=== PATIENT | male | born 1935 | race Caucasian/White ===

== ENCOUNTER → 2016-10-27 | Outpatient (CLI) | payer BC ==
[~2016-10-27] MED LIST: ACET-1311 PO; ALLO300T2 PO; BACI500O11 TOP; BISACODYL SUPP INH; DILT-115 PO; FRS/40 PO; HYDR25SU6 RE; IMD/2 PO; ISOS60TA25 PO; MOML PO; MULT-506 PO; MULTTAB63 PO; OMEG10007 PO; POLY335019 PO; PRAV20TA PO; PRLSR20 PO; SENN1TAB77 PO; SENN8.6T15 PO; SODI1ENE4 RE; SPRIN/30 INH; SUCR1TAB29 PO; TAMS0.4C38 PO; TIOTCAP INH; TYL325X PO; WARF2TAB PO; WARF4TAB PO
[2016-10-27 13:14] LABS: INR 3.8 (0.9-1.1); PROTHROMBIN TIME (PATIENT) 43.1 SECONDS (9.0-12.0)
--- NOTE | 2016-11-06 08:47 | CODING QUERY NO DIAGNOSIS ---
Valid Physician Order Needed A valid physician order must be submitted in order to properly bill for the service(s) provided, including date of service(s), valid diagnosis, and physician signature. If these tests are done on a recurring basis the original physician order must be submitted in order to code and bill for the service(s) provided. Please fax us the original, signed physician order so that we may expedite billing to [phone] DOS 10/27/16 * PTINR Thank you! Lynn English Health Information Management
== END | disposition home or self-care (01) ==
LOC: C.LABWYN 10:25
PROVIDERS: ATTEND Internal Medicine Cardiovascular Disease
DX: Z51.81 Encounter for therapeutic drug level monitoring (principal); Z79.01 Long term (current) use of anticoagulants; I48.91 Unspecified atrial fibrillation

== ENCOUNTER 2016-11-03 22:46 | Emergency (ER) | payer BC ==
[~2016-11-03] VITALS: Ht 182.9 cm; Wt 100.0 kg
[~2016-11-03 22:46] MED LIST changes: -ACET-1311 PO; -IMD/2 PO; -MULTTAB63 PO; -SENN8.6T15 PO; -SPRIN/30 INH; -TAMS0.4C38 PO; -WARF4TAB PO
[2016-11-03 22:52] VITALS: TEMP 36.7; Ht 182.9 cm; Wt 100.0 kg
[2016-11-03] MEDS ORDERED: SPRIN/30 INH (23:50)
--- NOTE | 2016-11-03 23:50 | EMERGENCY ROOM VISIT NOTE ---
History Report prepared by Live: John Mac Under the Supervision of: Dr. Fletcher Sharp M.D. First contact with patient: 23:27 Chief Complaint: UNABLE TO VOID Stated Complaint: CAN NOT URINATE,CONSTIPATED History of Present Illness The patient is a 80 year old male who presents to the Emergency Room with complaints of constant inability to urinate beginning this morning. He was found to have 600 cc of urine in his bladder by bedside ultrasound. The patient states that he is also constipated. He states that he is only able to defecate small amounts at a time, and feels that he may be impacted. He has taken laxatives for his constipation, but this did not help. His caregiver notes that the patient is chronically on laxatives, and recently had his dosage reduced. Source of History: patient, caregiver Onset: This morning Symptom Intensity: 600 cc urine in bladder Quality: other (inability to urinate) Timing: constant Note: The patient complains of constipation. Review of Systems See HPI for pertinent positives & negatives. A total of 10 systems reviewed and were otherwise negative. Past Medical & Surgical Medical Problems: (1) Altered mental status (2) Ambulatory dysfunction (3) CAD (coronary artery disease) (4) CKD (chronic kidney disease) (5) COPD (chronic obstructive pulmonary disease) (6) HTN (hypertension) (7) Proctitis (8) Septic shock (9) Weakness generalized Family History FH: cancer FH: heart disease FH: hypertension Social History Smoking Status: Never Smoker Alcohol Use: none Drug Use: none Marital Status: Housing Status: lives alone Occupation Status: retired Current/Historical Medications Scheduled Allopurinol (Zyloprim), 300 MG PO QAM Diltiazem Hcl Ext Rel (Tiazac), 240 MG PO BID Furosemide (Lasix), 40 MG PO DAILY Isosorbide Mononitrate Ext Rel (Imdur Ext Rel), 60 MG PO QAM Multiple Vitamins W/ Minerals (Therems M), 1 TAB PO DAILY Omeprazole (Prilosec), 20 MG PO QAM Pravastatin (Pravachol ), 20 MG PO QPM Sucralfate (Carafate), 1 GM PO DAILY Tiotropium [place] (Spiriva Handihaler), 1 CAP INH DAILY Warfarin Sodium (Coumadin), 4 MG PO 4XWK Scheduled PRN Acetaminophen (Tylenol), 650 MG PO Q4 PRN for Pain or Fever Loperamide Hcl (Imodium), 2 MG PO UD PRN for Diarrhea Polyethylene Glycol 3350 (Miralax), 17 GM PO DAILY PRN for Constipation Sennosides-Docusate Sodium (Sennalax-S), 2 TABS PO DAILY PRN for Constipation Miscellaneous Medications Warfarin Sodium (Coumadin), 2 MG PO Allergies Coded Allergies: No Known Allergies (Verified , 11/03/16) Physical Exam Vital Signs Date Time Temp Pulse Resp B/P Pulse Ox O2 Delivery O2 Flow Rate FiO2 11/04/16 02:35 95 20 141/82 97 11/04/16 01:40 92 20 147/86 97 Room Air 11/03/16 22:52 36.7 73 18 138/66 93 Room Air Physical Exam GENERAL: Patient is in no acute distress. HEENT: No acute trauma, normocephalic atraumatic, mucous membranes moist, no nasal congestion, no scleral icterus. NECK: No stridor, no adenopathy, no meningismus, trachea is midline. LUNGS: Clear to auscultation bilaterally, no wheeze, no rhonchi, breath sounds equal. HEART: Irregular rhythm with a normal rate. No murmurs. ABDOMEN: Tenderness over the bladder, bowel sounds positive, no hernias, no peritonitis. EXTREMITIES: No cyanosis or edema, full range of motion of all the joints without pain or difficulty, no signs for acute trauma. NEUROLOGIC: Oriented x 3, no acute motor or sensory deficits, no focal weakness. SKIN: No rash, no jaundice, no diaphoresis. Medical Decision & Procedures ER Provider Diagnostic Interpretation: KUB interpreted by me: constipation noted. Laboratory Results Test 11/03/16 00:00 Urine Color DK YELLOW Urine Appearance CLEAR (CLEAR) Urine pH 5.5 (4.5-7.5) Urine Specific [place] 1.015 (1.000-1.030) Urine Protein NEG (NEG) Urine Glucose (UA) NEG (NEG) Urine Ketones NEG (NEG) Urine Occult Blood NEG (NEG) Urine Nitrite NEG (NEG) Urine Bilirubin NEG (NEG) Urine Urobilinogen NEG (NEG) Urine Leukocyte Esterase NEG (NEG) Laboratory results reviewed by me. Medications Administered Medications (Trade) Dose Ordered Sig/Kam[place] Route Start Time Stop Time Status Last Admin Dose Admin Senna/Docusate Sodium (Senokot S Tab) 2 tab NOW ONCE PO 11/04/16 01:15 11/04/16 01:16 DC 11/04/16 01:41 2 TAB ED Course 2328: The patient was evaluated in room C11B. A complete history and physical exam was performed. 0019: I checked in on the patient. He is feeling more comfortable after he has bladder was emptied. 1000 cc of urine was drained. I discussed the prospect of getting an enema to help with his constipation, and he verbalized agreement. 0115: Ordered Senokot S Tab 2 tab PO. 0225: Reevaluated the patient. Discussed results and discharge instructions: he verbalized understanding and agreement. The patient is ready for discharge. Medical Decision The patient is a 80 year old male who presents to the ED with complaints of the inability to urinate. Differential diagnoses considered include UTI, urinary retention, constipation, ureteral stricture, hernia, The patient presents with the inability to urinate as well as constipation. He has had the same issue about a year ago. He was adamant that he would not leave here with a Martins catheter in place. A Martins catheter was inserted and about 1000 mL of urine drained. Urinalysis does not show infection or hematuria. KUB demonstrates constipation. The patient was given 2 oral Senokot, he received soapsuds enemas with minimal results. On my rectal exam, soft stool was found in the rectal vault. The patient does not want to stay here any longer. He would like to go home to see if he can move his bowels with some more time. He states that he will return if he cannot urinate and will return if he has no success with bowel movements. He is being discharged on Senokot and Miralax. Impression Primary Impression: Urinary retention Additional Impression: Constipation Scribe Attestation The scribe's documentation has been prepared under my direction and personally reviewed by me in its entirety. I confirm that the note above accurately reflects all work, treatment, procedures, and medical decision making performed by me. Departure Information Dispostion Home / Self-Care Referrals [facility] (PCP) Forms HOME CARE DOCUMENTATION FORM, IMPORTANT VISIT INFORMATION, WORK / SCHOOL INSTRUCTIONS Patient Instructions My [facility] Additional Instructions senokot 2 tab 2x per day for now---if stool becomes too loose decrease to 2 tab 1x per day for now use miralax 1 heaping capfull in 8 oz of liquid 2x per day--if stool becomes too loose decrease to 1x per day return for worsening symptoms or if you cannont urinate Problem Qualifiers
[2016-11-03] MEDS ORDERED: MULTTAB63 PO (23:51)
[2016-11-03] MEDS ORDERED: WARF2TAB PO (23:53)
[2016-11-03] MEDS ORDERED: WARF4TAB PO (23:53)
[2016-11-03] MEDS ORDERED: SENN8.6T15 PO (23:55)
[2016-11-03] MEDS ORDERED: ACET-1311 PO (23:56)
[2016-11-03] MEDS ORDERED: IMD/2 PO (23:56)
[2016-11-04 00:14] LABS: URINE APPEARANCE CLEAR (CLEAR); URINE BILIRUBIN NEG (NEG); URINE COLOR DK YELLOW; URINE NITRITE NEG (NEG); URINE PH 5.5 (4.5-7.5); URINE SPECIFIC GRAVITY 1.015 (1.000-1.030); UROBILINOGEN NEG (NEG)
[2016-11-04 00:38] LABS: MANUAL MICROSCOPIC REQUIRED? NO; REVIEW REQ? NO
[2016-11-04] MEDS ORDERED: DOCUSATE SODIUM/SENNA 50/8.6MG TAB PO ONE (01:15)
[2016-11-04 02:35] VITALS: BP 141/82; PULSE 95; O2SAT 97
--- NOTE | 2016-11-04 06:54 | DIAGNOSTIC IMAGING REPORT ---
VALERIE CLINICAL HISTORY: Possible constipation. COMPARISON STUDY: KUB January 02, 2016. FINDINGS: A pacer lead is partially imaged. There are calcified granulomas within the spleen. The bowel gas pattern is within normal limits. There is a moderate amount of stool within the colon and rectum. IMPRESSION: 1. No evidence of a bowel obstruction. 2. Moderate amount of stool within the colon and rectum. Electronically signed by: Federico Denis M.D. 11/04/2016 6:51 AM Dictated Date/Time: 11/04/2016 6:50 AM
== END 2016-11-04 02:47 | disposition home or self-care (01) ==
LOC: C.EDB 22:48 → C.EDC 11-04 02:47
DX: R33.9 Retention of urine, unspecified (principal); K59.00 Constipation, unspecified; J44.9 Chronic obstructive pulmonary disease, unspecified; N18.9 Chronic kidney disease, unspecified; I12.9 Hypertensive chronic kidney disease with stage 1 through stage 4 chronic kidney disease, or unspecified chronic kidney disease; I25.10 Atherosclerotic heart disease of native coronary artery without angina pectoris

== ENCOUNTER → 2016-11-05 | Outpatient (CLI) | payer BC ==
[~2016-11-05] MED LIST changes: +ACET-1311 PO; -BACI500O11 TOP; -BISACODYL SUPP INH; -HYDR25SU6 RE; +IMD/2 PO; -MOML PO; -MULT-506 PO; +MULTTAB63 PO; -OMEG10007 PO; -SENN1TAB77 PO; +SENN8.6T15 PO; -SODI1ENE4 RE; +SPRIN/30 INH; +TAMS0.4C38 PO; -TIOTCAP INH; -TYL325X PO; +WARF4TAB PO
[2016-11-05 12:39] LABS: INR 2.6 (0.9-1.1); PROTHROMBIN TIME (PATIENT) 28.6 SECONDS (9.0-12.0)
== END | disposition home or self-care (01) ==
LOC: C.LABWYN 12:37
PROVIDERS: ATTEND Internal Medicine Cardiovascular Disease
DX: Z51.81 Encounter for therapeutic drug level monitoring (principal); Z79.01 Long term (current) use of anticoagulants

== ENCOUNTER 2016-11-12 11:55 | Emergency (ER) | payer BC ==
[~2016-11-12] VITALS: Ht 182.9 cm; Wt 103.0 kg
[~2016-11-12 11:55] MED LIST changes: -TAMS0.4C38 PO
[2016-11-12 11:58] VITALS: TEMP 36.6; Ht 182.9 cm; Wt 103.0 kg
[2016-11-12] MEDS ORDERED: SODIUM CHLORIDE 0.9% 500ML 500 ML IV STA (12:12)
[2016-11-12] MEDS ORDERED: METOCLOPRAMIDE HCL INJ 5 MG/ML 2 ML VIAL IV STA (12:12)
--- NOTE | 2016-11-12 12:25 | EMERGENCY ROOM VISIT NOTE ---
History Report prepared by Live: Sandy Castillo Under the Supervision of: Dr. Fausto Ramirez M.D. First contact with patient: 12:04 Chief Complaint: CONSTIPATION Stated Complaint: CONSTIPATION History of Present Illness The patient is an 80 year old male who presents to the Emergency Room via ALS from [facility] with complaints of persistent constipation that began prior to arrival. He currently rates his discomfort as a 2/10 in severity. The patient states that he was evaluated in the hospital last week for urinary retention and constipation. He states that he was "cleaned out" at that time, but states that he has not had a bowel movement since then. The patient additionally notes that he has not been urinating and states that he is in urinary retention. He denies taking any narcotic medications regularly. The patient notes abdominal pain today, but denies any hematochezia. He states that his constipations problems have been ongoing intermittently for the past year. Source of History: patient Onset: prior to arrival Position: other (global) Symptom Intensity: 2/10 Quality: other (constipation) Timing: other (persistent) Associated Symptoms: + abdominal pain, No hematochezia Note: Associated Symptoms: urinary retention. Review of Systems See HPI for pertinent positives & negatives. A total of 10 systems reviewed and were otherwise negative. Past Medical & Surgical Medical Problems: (1) Altered mental status (2) Ambulatory dysfunction (3) CAD (coronary artery disease) (4) CKD (chronic kidney disease) (5) COPD (chronic obstructive pulmonary disease) (6) HTN (hypertension) (7) Proctitis (8) Septic shock (9) Weakness generalized Family History FH: cancer FH: heart disease FH: hypertension Social History Smoking Status: Former Smoker Alcohol Use: none Drug Use: none Marital Status: Housing Status: lives alone Occupation Status: retired Current/Historical Medications Scheduled Allopurinol (Zyloprim), 300 MG PO QAM Diltiazem Hcl Ext Rel (Tiazac), 240 MG PO BID Furosemide (Lasix), 40 MG PO DAILY Isosorbide Mononitrate Ext Rel (Imdur Ext Rel), 60 MG PO QAM Multiple Vitamins W/ Minerals (Therems M), 1 TAB PO DAILY Omeprazole (Prilosec), 20 MG PO QAM Pravastatin (Pravachol ), 20 MG PO QPM Sucralfate (Carafate), 1 GM PO DAILY Tamsulosin Hcl (Flomax), 0.4 MG PO HS Tiotropium [place] (Spiriva Handihaler), 1 CAP INH DAILY Warfarin Sodium (Coumadin), 4 MG PO 4XWK Scheduled PRN Acetaminophen (Tylenol), 650 MG PO Q4 PRN for Pain or Fever Loperamide Hcl (Imodium), 2 MG PO UD PRN for Diarrhea Polyethylene Glycol 3350 (Miralax), 17 GM PO DAILY PRN for Constipation Sennosides-Docusate Sodium (Sennalax-S), 2 TABS PO DAILY PRN for Constipation Miscellaneous Medications Warfarin Sodium (Coumadin), 2 MG PO Allergies Coded Allergies: No Known Allergies (Verified , 11/12/16) Physical Exam Vital Signs Date Time Temp Pulse Resp B/P Pulse Ox O2 Delivery O2 Flow Rate FiO2 11/12/16 16:12 105 16 146/86 97 Room Air 11/12/16 15:16 101 18 146/86 96 Room Air 11/12/16 13:24 85 14 140/93 95 Room Air 11/12/16 12:46 114 11/12/16 11:58 36.6 112 17 115/55 96 Room Air Physical Exam GENERAL: Patient is a healthy-appearing well-nourished HEAD: Normocephalic atraumatic EYES: Ocular movements intact pupils equal and react to light OROPHARYNX mucous membranes are moist no exudates present no erythema or edema present NECK: Supple no nuchal rigidity CHEST: Good equal expansion LUNGS: Clear and equal to auscultation CARDIAC: Normal S1 and S2 ABDOMEN: Soft nontender no guarding BACK: No CVA tenderness EXTREMITIES: No pain upon palpation normal muscle strength in all groups no clubbing cyanosis or edema NEURO: Patient is following commands is answering questions appropriately. Alert and oriented x3 Cranial Nerves 2-12 grossly intact Medical Decision & Procedures ER Provider Diagnostic Interpretation: CT results as stated below per my review and radiologist interpretation: CT OF THE ABDOMEN AND PELVIS WITHOUT CONTRAST CLINICAL HISTORY: Diffuse abdominal pain. Constipation. COMPARISON STUDY: CT of the abdomen and pelvis December 26, 2015 and KUB November 04, 2016. TECHNIQUE: Axial images of the abdomen and pelvis were obtained without IV contrast. Oral contrast was administered. Images were reviewed in the axial, sagittal, and coronal planes. FINDINGS: The heart is moderately enlarged. Pacer lead is noted. There are calcified granulomas within the spleen. A lobular density along the right hepatic lobe is unchanged since earlier exams. This is benign given stability. Unenhanced images of the adrenal glands and pancreas are normal. Note is made of a 1.5 cm water attenuation lesion projecting off the upper pole of the left kidney. This likely reflects a cyst although is suboptimally assessed on this unenhanced exam. A 1.2 cm hypodense lesion arising from the lower pole the left kidney was shown to likely reflect a system renal ultrasound of December 29, 2015. There is a nonobstructing 3 mm distal right ureteral calculus shown on axial image 371 of 466. There is no evidence for a bowel obstruction. There is a moderate amount of stool within the colon and rectum. Metallic densities within the rectum likely reflect endoscopic clips. There is minimal perirectal infiltration. This is diminished since prior exam. The appendix is normal. No pneumatosis, free air or portal venous gas is present. IMPRESSION: 1. 3 mm nonobstructing distal right ureteral calculus. No hydronephrosis. 2. Moderate amount of stool within the colon and rectum. No bowel obstruction. Electronically signed by: Federico Denis M.D. 11/12/2016 3:08 PM Dictated Date/Time: 11/12/2016 2:59 PM Laboratory Results 11/12/16 12:15 Red Blood Count 3.24, Mean Corpuscular Volume 96.9, Mean Corpuscular Hemoglobin 31.5, Mean Corpuscular Hemoglobin Concent 32.5, Mean Platelet Volume 9.8, Neutrophils (%) (Auto) 72.0, Lymphocytes (%) (Auto) 17.1, Monocytes (%) (Auto) 6.6, Eosinophils (%) (Auto) 3.6, Basophils (%) (Auto) 0.2, Neutrophils # (Auto) 6.18, Lymphocytes # (Auto) 1.47, Monocytes # (Auto) 0.57, Eosinophils # (Auto) 0.31, Basophils # (Auto) 0.02 11/12/16 12:15 Test 11/12/16 12:15 11/12/16 12:30 White Blood Count 8.59 K/uL (4.8-10.8) Red Blood Count 3.24 M/uL (4.7-6.1) Hemoglobin 10.2 g/dL (14.0-18.0) Hematocrit 31.4 % (42-52) Mean Corpuscular Volume 96.9 fL (80-100) Mean Corpuscular Hemoglobin 31.5 pg (25-34) Mean Corpuscular Hemoglobin Concent 32.5 g/dl (32-36) Platelet Count 223 K/uL (130-400) Mean Platelet Volume 9.8 fL (7.4-10.4) Neutrophils (%) (Auto) 72.0 % Lymphocytes (%) (Auto) 17.1 % Monocytes (%) (Auto) 6.6 % Eosinophils (%) (Auto) 3.6 % Basophils (%) (Auto) 0.2 % Neutrophils # (Auto) 6.18 K/uL (1.4-6.5) Lymphocytes # (Auto) 1.47 K/uL (1.2-3.4) Monocytes # (Auto) 0.57 K/uL (0.11-0.59) Eosinophils # (Auto) 0.31 K/uL (0-0.5) Basophils # (Auto) 0.02 K/uL (0-0.2) RDW Standard Deviation 55.8 fL (36.4-46.3) RDW Coefficient of Variation 15.7 % (11.5-14.5) Immature Granulocyte % (Auto) 0.5 % Immature Granulocyte # (Auto) 0.04 K/uL (0.00-0.02) Anion Gap 8.0 mmol/L (3-11) Est Creatinine Clear Calc Drug Dose 26.6 ml/min Estimated GFR () 24.5 Estimated GFR (Non- 21.1 BUN/Creatinine Ratio 13.1 (10-20) Calcium Level 8.6 mg/dl (8.5-10.1) Total Bilirubin 0.2 mg/dl (0.2-1) Direct Bilirubin < 0.1 mg/dl (0-0.2) Aspartate Amino Transf (AST/SGOT) 6 U/L (15-37) Alanine Aminotransferase (ALT/SGPT) 15 U/L (12-78) Alkaline Phosphatase 94 U/L (45-117) Total Protein 6.0 gm/dl (6.4-8.2) Albumin 2.8 gm/dl (3.4-5.0) Lipase 107 U/L (73-393) Urine Color YELLOW Urine Appearance CLEAR (CLEAR) Urine pH 6.5 (4.5-7.5) Urine Specific [place] 1.018 (1.000-1.030) Urine Protein NEG (NEG) Urine Glucose (UA) NEG (NEG) Urine Ketones NEG (NEG) Urine Occult Blood NEG (NEG) Urine Nitrite NEG (NEG) Urine Bilirubin NEG (NEG) Urine Urobilinogen NEG (NEG) Urine Leukocyte Esterase SMALL (NEG) Urine WBC (Auto) 5-10 /hpf (0-5) Urine RBC (Auto) 0-4 /hpf (0-4) Urine Hyaline Casts (Auto) 1-5 /lpf (0-5) Urine Epithelial Cells (Auto) 10-20 /lpf (0-5) Urine Bacteria (Auto) 1+ (NEG) Labs reviewed by ED physician. Medications Administered Medications (Trade) Dose Ordered Sig/Kamron Route Start Time Stop Time Status Last Admin Dose Admin Sodium Chloride (Nss 500ml) 500 ml @ 999 mls/hr Q31M STAT IV 11/12/16 12:12 11/12/16 12:42 DC 11/12/16 12:15 999 MLS/HR Metoclopramide HCl (Reglan Inj) 10 mg NOW STAT IV 11/12/16 12:12 11/12/16 12:14 DC 11/12/16 13:20 10 MG Magnesium Citrate (Citrate Of Magnesia Soln) 296 ml NOW STAT PO 11/12/16 15:47 11/12/16 15:48 DC 11/12/16 16:12 296 ML ED Course 1207: Past medical records reviewed. The patient was evaluated in room C7. A complete history and physical examination was performed by the Nurse Practitioner student. 1212: Ordered Reglan Inj 10 mg IV, Sodium Chloride 500 ml @ 999 mls/hr IV. 1216: Past medical records reviewed. The patient was evaluated in room C7. A complete history and physical examination was performed. 1527: I reevaluated the patient and he is resting comfortably. I discussed the exam findings with him and I discussed the treatment plan. He verbalized complete understanding and agreement. He is ready to go home. 1547: Ordered Magnesium Citrate 296 ml PO. Medical Decision Differential diagnosis: Etiologies such as appendicitis, diverticulitis, PUD, biliary pathology, UTI, pancreatitis, obstruction, mesenteric ischemia, aortic pathology, infections, inflammatory bowel disease, renal colic, as well as others were entertained. This is an 80-year-old male who presents to the emergency department complaining of constipation as well as urinary retention. A Martins was placed in the emergency department. Because the patient has been here numerous times for his constipation a CAT scan of the abdomen pelvis performed which showed a moderate amount of stool throughout the colon. For this reason we will attempt to get the patient moving again with magnesium citrate. In addition the patient also has a kidney stone and I believe this may be what the patient is feeling when he states he is in urinary retention as well as the constipation. For this reason I strongly encouraged the patient follow-up with urology. I will place the patient on Flomax for the catheter. Impression Primary Impression: Kidney stone Additional Impression: Constipation Scribe Attestation The scribe's documentation has been prepared under my direction and personally reviewed by me in its entirety. I confirm that the note above accurately reflects all work, treatment, procedures, and medical decision making performed by me. Departure Information Dispostion Home / Self-Care Prescriptions Tamsulosin Hcl (FLOMAX) 0.4 Mg Cap 0.4 MG PO HS, #10 CAP Prov: Fausto Ramirez MD 11/12/16 Referrals [facility] (PCP) Forms HOME CARE DOCUMENTATION FORM, IMPORTANT VISIT INFORMATION, School Instructions, Work Instructions Patient Instructions Constipation, Kidney Stones Eval, My [facility] Additional Instructions Take 1/2 Bottle Mag Citrate Repeat second half in six hours Follow up with DR Leonard's officefor kidney stone Clear liquid diet next 48 hours You have been examined and treated today on an emergency basis only. This is not a substitute for, or an effort to provide, complete comprehensive medical care. It is impossible to recognize and treat all injuries or illnesses in a single emergency department visit. It is therefore important that you follow up closely with Dr Hope. Call as soon as possible for an appointment. Thank you for your time and consideration. I look forward to speaking with you again soon. Please don't hesitate to call us if you have any questions. Problem Qualifiers Additional Impression: Constipation Constipation type: unspecified constipation type Qualified Codes: K59.00 - Constipation, unspecified
[2016-11-12 12:38] LABS: BASO % 0.2 %; BASO ABS # 0.02 K/uL (0-0.2); COMPLETE YES; EOS % 3.6 %; HEMATOCRIT 31.4 % (42-52); IG% 0.5 %; LYMPH % 17.1 %; LYMPH ABS # 1.47 K/uL (1.2-3.4); MEAN CELL VOLUME 96.9 fL (80-100); MEAN CORPUSCULAR HEMOGLOBIN 31.5 pg (25-34); MEAN CORPUSCULAR HGB CONC 32.5 g/dl (32-36); MEAN PLATELET VOLUME 9.8 fL (7.4-10.4); MONO % 6.6 %; PLATELET COUNT 223 K/uL (130-400); RED BLOOD COUNT 3.24 M/uL (4.7-6.1); WHITE BLOOD COUNT 8.59 K/uL (4.8-10.8)
[2016-11-12 12:46] LABS: URINE APPEARANCE CLEAR (CLEAR); URINE BILIRUBIN NEG (NEG); URINE COLOR YELLOW; URINE NITRITE NEG (NEG); URINE PH 6.5 (4.5-7.5); URINE SPECIFIC GRAVITY 1.018 (1.000-1.030); UROBILINOGEN NEG (NEG); ZZURINE CULT IF INDIC CATH YES
[2016-11-12 12:54] LABS: MANUAL MICROSCOPIC REQUIRED? NO; REVIEW REQ? NO
[2016-11-12 12:58] LABS: ALT/SGPT 15 U/L (12-78); BLOOD UREA NITROGEN 35 mg/dl (7-18); BUN/CREATININE RATIO 13.1 (10-20); CALCIUM 8.6 mg/dl (8.5-10.1); CARBON DIOXIDE 28 mmol/L (21-32); CHLORIDE 104 mmol/L (98-107); GLUCOSE 136 mg/dl (70-99); POTASSIUM 4.7 mmol/L (3.5-5.1); SODIUM 140 mmol/L (136-145)
[2016-11-12 13:03] LABS: ALKALINE PHOSPHATASE 94 U/L (45-117); AST/SGOT 6 U/L (15-37)
--- NOTE | 2016-11-12 15:09 | DIAGNOSTIC IMAGING REPORT ---
CT OF THE ABDOMEN AND PELVIS WITHOUT CONTRAST CLINICAL HISTORY: Diffuse abdominal pain. Constipation. COMPARISON STUDY: CT of the abdomen and pelvis December 26, 2015 and KUB November 04, 2016. TECHNIQUE: Axial images of the abdomen and pelvis were obtained without IV contrast. Oral contrast was administered. Images were reviewed in the axial, sagittal, and coronal planes. FINDINGS: The heart is moderately enlarged. Pacer lead is noted. There are calcified granulomas within the spleen. A lobular density along the right hepatic lobe is unchanged since earlier exams. This is benign given stability. Unenhanced images of the adrenal glands and pancreas are normal. Note is made of a 1.5 cm water attenuation lesion projecting off the upper pole of the left kidney. This likely reflects a cyst although is suboptimally assessed on this unenhanced exam. A 1.2 cm hypodense lesion arising from the lower pole the left kidney was shown to likely reflect a system renal ultrasound of December 29, 2015. There is a nonobstructing 3 mm distal right ureteral calculus shown on axial image 371 of 466. There is no evidence for a bowel obstruction. There is a moderate amount of stool within the colon and rectum. Metallic densities within the rectum likely reflect endoscopic clips. There is minimal perirectal infiltration. This is diminished since prior exam. The appendix is normal. No pneumatosis, free air or portal venous gas is present. IMPRESSION: 1. 3 mm nonobstructing distal right ureteral calculus. No hydronephrosis. 2. Moderate amount of stool within the colon and rectum. No bowel obstruction. Electronically signed by: Federico Denis M.D. 11/12/2016 3:08 PM Dictated Date/Time: 11/12/2016 2:59 PM
[2016-11-12] MEDS ORDERED: TAMS0.4C38 PO (15:41)
[2016-11-12] MEDS ORDERED: MAGNESIUM CITRATE 296 ML/BTL PO STA (15:47)
[2016-11-12 16:12] VITALS: BP 146/86; PULSE 105; O2SAT 97
== END 2016-11-12 16:15 | disposition home or self-care (01) ==
LOC: EDBD 11:55 → C.EDC 11:57
DX: N20.0 Calculus of kidney (principal); K59.00 Constipation, unspecified; I25.10 Atherosclerotic heart disease of native coronary artery without angina pectoris; N18.9 Chronic kidney disease, unspecified; I10 Essential (primary) hypertension; Z87.891 Personal history of nicotine dependence; Z79.01 Long term (current) use of anticoagulants

== ENCOUNTER → 2016-11-17 | Outpatient (CLI) | payer BC ==
[~2016-11-17] MED LIST changes: +BACI500O11 TOP; +BISACODYL SUPP INH; +HYDR25SU6 RE; +MOML PO; +MULT-506 PO; +OMEG10007 PO; +SENN1TAB77 PO; +SODI1ENE4 RE; +TAMS0.4C38 PO; +TIOTCAP INH; +TYL325X PO
[2016-11-17 12:47] LABS: INR 3.5 (0.9-1.1); PROTHROMBIN TIME (PATIENT) 39.1 SECONDS (9.0-12.0)
== END | disposition home or self-care (01) ==
LOC: C.LABWYN 14:11
PROVIDERS: ATTEND Internal Medicine Cardiovascular Disease
DX: I48.91 Unspecified atrial fibrillation (principal)

== ENCOUNTER → 2016-11-18 | Outpatient (CLI) | payer BC ==
[~2016-11-18] MED LIST changes: -BACI500O11 TOP; -BISACODYL SUPP INH; -HYDR25SU6 RE; -MOML PO; -MULT-506 PO; -OMEG10007 PO; -SENN1TAB77 PO; -SODI1ENE4 RE; -TIOTCAP INH; -TYL325X PO
--- NOTE | 2016-11-25 06:19 | CODING QUERY NO DIAGNOSIS ---
Valid Physician Order Needed A valid physician order must be submitted in order to properly bill for the service(s) provided, including date of service(s), valid diagnosis, and physician signature. If these tests are done on a recurring basis the original physican order must be submitted in order to code and bill for the service(s) provided. Please fax us the original, signed physician order so that we may expedite billing to [phone] DOS 11/19/16 * URINE CULTURE ORDERED BY DR. PRADHAN Thank you Anahy [facility] Information Management
== END | disposition home or self-care (01) ==
LOC: C.LABWYN 09:56
PROVIDERS: ATTEND Urology
DX: N40.1 Benign prostatic hyperplasia with lower urinary tract symptoms (principal); N20.1 Calculus of ureter; R33.9 Retention of urine, unspecified

== ENCOUNTER → 2016-11-24 | Outpatient (CLI) | payer BC ==
[~2016-11-24] MED LIST changes: -TAMS0.4C38 PO
[2016-11-24 18:33] LABS: INFLUENZA A PCR Neg for Influ A (NEG); INFLUENZA B PCR Neg for Influ B (NEG)
== END | disposition home or self-care (01) ==
LOC: C.LABWYN 12:02
PROVIDERS: ATTEND Nurse Practitioner Adult Health
DX: R53.83 Other fatigue (principal)

== ENCOUNTER → 2016-11-26 | Outpatient (CLI) | payer BC ==
[2016-11-26 12:59] LABS: HEMATOCRIT 32.4 % (42-52); MEAN CELL VOLUME 96.4 fL (80-100); MEAN CORPUSCULAR HEMOGLOBIN 30.7 pg (25-34); MEAN CORPUSCULAR HGB CONC 31.8 g/dl (32-36); MEAN PLATELET VOLUME 10.7 fL (7.4-10.4); PLATELET COUNT 241 K/uL (130-400); RED BLOOD COUNT 3.36 M/uL (4.7-6.1); WHITE BLOOD COUNT 9.31 K/uL (4.8-10.8)
[2016-11-26 13:10] LABS: BLOOD UREA NITROGEN 24 mg/dl (7-18); BUN/CREATININE RATIO 11.8 (10-20); CALCIUM 8.5 mg/dl (8.5-10.1); CARBON DIOXIDE 26 mmol/L (21-32); CHLORIDE 107 mmol/L (98-107); GLUCOSE 102 mg/dl (70-99); POTASSIUM 4.3 mmol/L (3.5-5.1); SODIUM 143 mmol/L (136-145)
[2016-11-26 13:20] LABS: ESTIMATED AVERAGE GLUCOSE 131 mg/dl; HA1C FLAG Normal (Normal)
--- NOTE | 2016-11-27 15:31 | CODING QUERY NO DIAGNOSIS ---
TREATMENT RENDERED WITHOUT A DIAGNOSIS 34 To promote full compliance with coding requirements relating to patient care, physician participation is requested in all cases of sharepoint manager uncertainty. Please assist us with providing a diagnosis/symptom for the test(s) below: A diagnosis/symptom was not documented on your Order. A valid diagnosis/symptom is required to bill all insurances. Please remember that we are unable to code a diagnosis of rule out, probable, possible, questionable, or suspected. DOS 11/26/16 Tests that require a diagnosis: * HEMOGLOBIN A1C DIAGNOSIS: * PARTIAL RENAL PROFILE DIAGNOSIS: * TSH DIAGNOSIS: * CBC w/o DIFF DIAGNOSIS: Provider Signature: Date: Thank you Cassidy Kelly Health Information Management Once completed, please kindly fax back to [phone] For questions please call [phone]
--- NOTE | 2016-12-22 12:44 | CODING QUERY MEDICAL NECESSITY ---
SUPPORTING DIAGNOSIS NEEDED A supporting diagnosis is required for the test/procedure performed on this patient in order for us to be reimbursed by the patient's insurance. Please provide a supporting diagnosis for the following test/procedure listed below next to the test name along with your signature. *If there is no additional diagnosis for this patient that would support the following test/procedure please document that below next to the test/procedure. Test(s)/Procedure(s) that require a supporting diagnosis: * GLYCATED HEMOGLOBIN DIAGNOSIS: * DOS: 11/26/16 Provider Signature: Date: Thank you Genie [facility] Information Management Once completed, please kindly fax back to [phone] For questions please call [phone]
== END | disposition home or self-care (01) ==
LOC: C.LABWYN 08:01
PROVIDERS: ATTEND Nurse Practitioner Adult Health
DX: R53.83 Other fatigue (principal); I48.91 Unspecified atrial fibrillation; Z79.01 Long term (current) use of anticoagulants; E11.9 Type 2 diabetes mellitus without complications

== ENCOUNTER → 2016-11-26 | Outpatient (CLI) | payer BC ==
[2016-11-26 13:08] LABS: INR 2.2 (0.9-1.1); PROTHROMBIN TIME (PATIENT) 24.8 SECONDS (9.0-12.0)
--- NOTE | 2016-11-27 15:25 | CODING QUERY NO DIAGNOSIS ---
TREATMENT RENDERED WITHOUT A DIAGNOSIS 34 To promote full compliance with coding requirements relating to patient care, physician participation is requested in all cases of dental appliance repairer uncertainty. Please assist us with providing a diagnosis/symptom for the test(s) below: A diagnosis/symptom was not documented on your Order. A valid diagnosis/symptom is required to bill all insurances. Please remember that we are unable to code a diagnosis of rule out, probable, possible, questionable, or suspected. DOS 11/26/16 Tests that require a diagnosis: * PROTHROMBIN TIME DIAGNOSIS: Provider Signature: Date: Thank you Cassidy Kelly [employer] Information Management Once completed, please kindly fax back to [phone] For questions please call [phone]
== END | disposition home or self-care (01) ==
LOC: C.LABWYN 08:01
PROVIDERS: ATTEND Internal Medicine
DX: I48.91 Unspecified atrial fibrillation (principal); Z79.01 Long term (current) use of anticoagulants

== ENCOUNTER → 2016-12-08 | Outpatient (CLI) | payer BC ==
[~2016-12-08] MED LIST changes: +SENN1TAB86 PO; -SENN8.6T15 PO
[2016-12-08 13:36] LABS: BLOOD UREA NITROGEN 26 mg/dl (7-18); BUN/CREATININE RATIO 14.3 (10-20); CALCIUM 8.6 mg/dl (8.5-10.1); CARBON DIOXIDE 29 mmol/L (21-32); CHLORIDE 107 mmol/L (98-107); GLUCOSE 115 mg/dl (70-99); POTASSIUM 4.7 mmol/L (3.5-5.1); SODIUM 143 mmol/L (136-145)
[2016-12-08 13:41] LABS: PROSTATE SPECIFIC ANTIGEN 0.804 ng/ml (0.000-4.000)
== END | disposition home or self-care (01) ==
LOC: C.LABWYN 08:41
PROVIDERS: ATTEND Urology
DX: N40.1 Benign prostatic hyperplasia with lower urinary tract symptoms (principal); R33.9 Retention of urine, unspecified; N20.1 Calculus of ureter

== ENCOUNTER → 2016-12-10 | Outpatient (CLI) | payer BC ==
[~2016-12-10] MED LIST changes: -SENN1TAB86 PO; +SENN8.6T15 PO
[2016-12-10 12:35] LABS: INR 1.6 (0.9-1.1); PROTHROMBIN TIME (PATIENT) 17.5 SECONDS (9.0-12.0)
== END | disposition home or self-care (01) ==
LOC: C.LABWYN 12:40
PROVIDERS: ATTEND Internal Medicine Cardiovascular Disease
DX: I48.91 Unspecified atrial fibrillation (principal)

== ENCOUNTER → 2016-12-11 | Outpatient (CLI) | payer BC ==
--- NOTE | 2016-12-11 09:47 | DIAGNOSTIC IMAGING REPORT ---
KUB HISTORY: N20.1 Ureteric [id number] COMPARISON: KUB 11/04/2016. Abdomen and pelvis CT 11/12/2016. FINDINGS: The bowel gas pattern is unremarkable. There are no dilated loops of small bowel to suggest an obstruction. The 3 mm distal right ureteral stone seen on the prior study is not clearly identified. Surgical clips at the rectum. Calcifications in the deep pelvis remain stable and likely represent phleboliths. No renal or ureteral calculi identified. No pneumoperitoneum or pneumatosis. IMPRESSION: No renal or ureteral stones identified. Electronically signed by: Phil Lynn M.D. 12/11/2016 9:45 AM Dictated Date/Time: 12/11/2016 9:43 AM
== END | disposition home or self-care (01) ==
LOC: C.LAB 08:42
PROVIDERS: ATTEND Urology
DX: N20.1 Calculus of ureter (principal)

== ENCOUNTER → 2016-12-17 | Outpatient (CLI) | payer BC ==
[2016-12-17 12:27] LABS: INR 1.7 (0.9-1.1); PROTHROMBIN TIME (PATIENT) 18.8 SECONDS (9.0-12.0)
== END | disposition home or self-care (01) ==
LOC: C.LABWYN 12:35
PROVIDERS: ATTEND Internal Medicine Cardiovascular Disease
DX: I48.91 Unspecified atrial fibrillation (principal)

== ENCOUNTER → 2016-12-24 | Outpatient (CLI) | payer BC ==
[2016-12-24 13:01] LABS: INR 2.2 (0.9-1.1); PROTHROMBIN TIME (PATIENT) 23.9 SECONDS (9.0-12.0)
== END | disposition home or self-care (01) ==
LOC: C.LABWYN 12:58
PROVIDERS: ATTEND Internal Medicine Cardiovascular Disease
DX: I48.91 Unspecified atrial fibrillation (principal)

== ENCOUNTER → 2016-12-31 | Outpatient (CLI) | payer BC ==
[~2016-12-31] MED LIST changes: +SENN1TAB86 PO; -SENN8.6T15 PO
[2016-12-31 13:52] LABS: BLOOD UREA NITROGEN 30 mg/dl (7-18); BUN/CREATININE RATIO 15.9 (10-20); CALCIUM 8.7 mg/dl (8.5-10.1); CARBON DIOXIDE 26 mmol/L (21-32); CHLORIDE 110 mmol/L (98-107); GLUCOSE 104 mg/dl (70-99); POTASSIUM 4.1 mmol/L (3.5-5.1); SODIUM 144 mmol/L (136-145)
== END | disposition home or self-care (01) ==
LOC: C.LABWYN 06:02
PROVIDERS: ATTEND Internal Medicine
DX: I48.91 Unspecified atrial fibrillation (principal); I10 Essential (primary) hypertension; E78.5 Hyperlipidemia, unspecified

== ENCOUNTER → 2017-01-14 | Outpatient (CLI) | payer BC ==
[~2017-01-14] MED LIST changes: -SENN1TAB86 PO; +SENN8.6T15 PO
[2017-01-14 12:10] LABS: INR 2.5 (0.9-1.1); PROTHROMBIN TIME (PATIENT) 28.3 SECONDS (9.0-12.0)
== END | disposition home or self-care (01) ==
LOC: C.LABWYN 13:40
PROVIDERS: ATTEND Internal Medicine Cardiovascular Disease
DX: I48.91 Unspecified atrial fibrillation (principal)

== ENCOUNTER → 2017-02-19 | Outpatient (CLI) | payer BC ==
[~2017-02-19] MED LIST changes: +SENN1TAB86 PO; -SENN8.6T15 PO
[2017-02-19 08:45] LABS: INR 1.9 (0.9-1.1); PROTHROMBIN TIME (PATIENT) 21.1 SECONDS (9.0-12.0)
== END | disposition home or self-care (01) ==
LOC: C.LABWYN 08:23
PROVIDERS: ATTEND Internal Medicine
DX: I51.81 Takotsubo syndrome (principal); Z79.01 Long term (current) use of anticoagulants; I48.91 Unspecified atrial fibrillation

== ENCOUNTER → 2017-02-25 | Outpatient (CLI) | payer BC ==
[2017-02-25 12:22] LABS: INR 2.3 (0.9-1.1); PROTHROMBIN TIME (PATIENT) 25.5 SECONDS (9.0-12.0)
== END | disposition home or self-care (01) ==
LOC: C.LABWYN 12:49
PROVIDERS: ATTEND Internal Medicine
DX: I48.91 Unspecified atrial fibrillation (principal)

== ENCOUNTER → 2017-03-04 | Outpatient (CLI) | payer BC ==
[~2017-03-04] MED LIST changes: -SENN1TAB86 PO; +SENN8.6T15 PO
[2017-03-04 12:50] LABS: INR 2.5 (0.9-1.1); PROTHROMBIN TIME (PATIENT) 28.3 SECONDS (9.0-12.0)
== END | disposition home or self-care (01) ==
LOC: C.LABWYN 06:15
PROVIDERS: ATTEND Internal Medicine Cardiovascular Disease
DX: I48.91 Unspecified atrial fibrillation (principal)

== ENCOUNTER → 2017-03-18 | Outpatient (CLI) | payer BC ==
[2017-03-18 12:39] LABS: PROTHROMBIN TIME (PATIENT) 60.4 SECONDS (9.0-12.0)
[2017-03-18 12:43] LABS: INR 5.3 (0.9-1.1)
== END | disposition home or self-care (01) ==
LOC: C.LABWYN 06:38
PROVIDERS: ATTEND Internal Medicine Cardiovascular Disease
DX: I48.91 Unspecified atrial fibrillation (principal)

== ENCOUNTER → 2017-03-30 | Outpatient (CLI) | payer BC ==
[~2017-03-30] MED LIST changes: +SENN1TAB86 PO; -SENN8.6T15 PO
[2017-03-30 12:47] LABS: PROTHROMBIN TIME (PATIENT) 44.9 SECONDS (9.0-12.0)
== END | disposition home or self-care (01) ==
LOC: C.LABWYN 12:51
PROVIDERS: ATTEND Internal Medicine Cardiovascular Disease
DX: I48.91 Unspecified atrial fibrillation (principal); Z79.01 Long term (current) use of anticoagulants

== ENCOUNTER → 2017-04-08 | Outpatient (CLI) | payer BC ==
[2017-04-08 12:52] LABS: INR 2.2 (0.9-1.1); PROTHROMBIN TIME (PATIENT) 23.9 SECONDS (9.0-12.0)
== END | disposition home or self-care (01) ==
LOC: C.LABWYN 14:46
PROVIDERS: ATTEND Internal Medicine Cardiovascular Disease
DX: Z51.81 Encounter for therapeutic drug level monitoring (principal); Z79.01 Long term (current) use of anticoagulants; I48.91 Unspecified atrial fibrillation

== ENCOUNTER → 2017-04-15 | Outpatient (CLI) | payer BC ==
[~2017-04-15] MED LIST changes: -SENN1TAB86 PO; +SENN8.6T15 PO
[2017-04-15 12:45] LABS: INR 2.1 (0.9-1.1); PROTHROMBIN TIME (PATIENT) 23.7 SECONDS (9.0-12.0)
== END | disposition home or self-care (01) ==
LOC: C.LABWYN 12:32
PROVIDERS: ATTEND Internal Medicine Cardiovascular Disease
DX: I48.91 Unspecified atrial fibrillation (principal); Z79.01 Long term (current) use of anticoagulants

== ENCOUNTER → 2017-04-29 | Outpatient (CLI) | payer BC ==
[2017-04-29 08:42] LABS: INR 1.7 (0.9-1.1); PROTHROMBIN TIME (PATIENT) 18.2 SECONDS (9.0-12.0)
== END | disposition home or self-care (01) ==
LOC: C.LABWYN 07:59
PROVIDERS: ATTEND Internal Medicine Cardiovascular Disease
DX: I48.91 Unspecified atrial fibrillation (principal)

== ENCOUNTER → 2017-05-06 | Outpatient (CLI) | payer BC | END | disposition home or self-care (01) | LOC: C.LABWYN 12:57 | PROVIDERS: ATTEND Internal Medicine Cardiovascular Disease | DX: I48.91 Unspecified atrial fibrillation (principal) ==

== ENCOUNTER → 2017-05-13 | Outpatient (CLI) | payer BC ==
[2017-05-13 12:20] LABS: INR 2.3 (0.9-1.1); PROTHROMBIN TIME (PATIENT) 25.4 SECONDS (9.0-12.0)
== END | disposition home or self-care (01) ==
LOC: C.LABWYN 12:58
PROVIDERS: ATTEND Internal Medicine Cardiovascular Disease
DX: I48.91 Unspecified atrial fibrillation (principal)

== ENCOUNTER → 2017-06-10 | Outpatient (CLI) | payer BC ==
[2017-06-10 12:52] LABS: MEAN CELL VOLUME 87.4 fL (80-100); MEAN CORPUSCULAR HEMOGLOBIN 27.2 pg (25-34); MEAN CORPUSCULAR HGB CONC 31.1 g/dl (32-36); MEAN PLATELET VOLUME 10.3 fL (7.4-10.4); PLATELET COUNT 266 K/uL (130-400); RED BLOOD COUNT 4.12 M/uL (4.7-6.1); WHITE BLOOD COUNT 11.12 K/uL (4.8-10.8)
[2017-06-10 12:54] LABS: INR 1.4 (0.9-1.1); PROTHROMBIN TIME (PATIENT) 15.3 SECONDS (9.0-12.0)
[2017-06-10 12:56] LABS: BLOOD UREA NITROGEN 30 mg/dl (7-18); BUN/CREATININE RATIO 14.9 (10-20); CARBON DIOXIDE 24 mmol/L (21-32); CHLORIDE 108 mmol/L (98-107); GLUCOSE 93 mg/dl (70-99); POTASSIUM 4.8 mmol/L (3.5-5.1); SODIUM 139 mmol/L (136-145)
[2017-06-10 13:07] LABS: ESTIMATED AVERAGE GLUCOSE 126 mg/dl; HA1C FLAG Normal (Normal)
== END | disposition home or self-care (01) ==
LOC: C.LABWYN 09:58
PROVIDERS: ATTEND Internal Medicine
DX: E11.22 Type 2 diabetes mellitus with diabetic chronic kidney disease (principal); N18.9 Chronic kidney disease, unspecified; I12.9 Hypertensive chronic kidney disease with stage 1 through stage 4 chronic kidney disease, or unspecified chronic kidney disease; Z51.81 Encounter for therapeutic drug level monitoring; Z79.01 Long term (current) use of anticoagulants

== ENCOUNTER → 2017-06-17 | Outpatient (CLI) | payer BC ==
[2017-06-17 12:43] LABS: INR 1.4 (0.9-1.1); PROTHROMBIN TIME (PATIENT) 15.6 SECONDS (9.0-12.0)
== END | disposition home or self-care (01) ==
LOC: C.LABWYN 13:14
PROVIDERS: ATTEND Internal Medicine
DX: I48.91 Unspecified atrial fibrillation (principal)

== ENCOUNTER → 2017-06-24 | Outpatient (CLI) | payer BC ==
[2017-06-24 12:50] LABS: INR 2.2 (0.9-1.1); PROTHROMBIN TIME (PATIENT) 24.9 SECONDS (9.0-12.0)
== END | disposition home or self-care (01) ==
LOC: C.LABWYN 06:10
PROVIDERS: ATTEND Internal Medicine
DX: I48.91 Unspecified atrial fibrillation (principal)

== ENCOUNTER → 2017-07-01 | Outpatient (CLI) | payer BC ==
[2017-07-01 12:26] LABS: INR 2.3 (0.9-1.1); PROTHROMBIN TIME (PATIENT) 25.3 SECONDS (9.0-12.0)
== END | disposition home or self-care (01) ==
LOC: C.LABWYN 13:17
PROVIDERS: ATTEND Internal Medicine
DX: I48.91 Unspecified atrial fibrillation (principal); Z79.01 Long term (current) use of anticoagulants

== ENCOUNTER → 2017-07-29 | Outpatient (CLI) | payer BC ==
[2017-07-29 12:42] LABS: PROTHROMBIN TIME (PATIENT) 33.5 SECONDS (9.0-12.0)
== END | disposition home or self-care (01) ==
LOC: C.LABWYN 09:57
PROVIDERS: ATTEND Internal Medicine
DX: I48.91 Unspecified atrial fibrillation (principal)

== ENCOUNTER → 2017-08-26 | Outpatient (CLI) | payer BC ==
[~2017-08-26] MED LIST changes: +SENN1TAB86 PO; -SENN8.6T15 PO
[2017-08-26 12:49] LABS: INR 2.9 (0.9-1.1); PROTHROMBIN TIME (PATIENT) 32.5 SECONDS (9.0-12.0)
== END | disposition home or self-care (01) ==
LOC: C.LABWYN 13:14
PROVIDERS: ATTEND Internal Medicine
DX: I48.2 Chronic atrial fibrillation (principal)

== ENCOUNTER → 2017-09-23 | Outpatient (CLI) | payer BC ==
[2017-09-23 12:41] LABS: PROTHROMBIN TIME (PATIENT) 53.5 SECONDS (9.0-12.0)
[2017-09-23 12:54] LABS: INR 5.3 (0.9-1.1)
== END | disposition home or self-care (01) ==
LOC: C.LABWYN 10:13
PROVIDERS: ATTEND Internal Medicine Cardiovascular Disease
DX: I48.2 Chronic atrial fibrillation (principal)

== ENCOUNTER → 2017-10-03 | Outpatient (CLI) | payer BC ==
[2017-10-05 12:52] LABS: INR 2.2 (0.9-1.1)
[2017-10-05 13:09] LABS: BLOOD UREA NITROGEN 39 mg/dl (7-18); CALCIUM 8.8 mg/dl (8.5-10.1); CARBON DIOXIDE 25 mmol/L (21-32); CREATININE 1.92 mg/dl (0.60-1.40); GLUCOSE 86 mg/dl (70-99); POTASSIUM 4.8 mmol/L (3.5-5.1); SODIUM 139 mmol/L (136-145)
== END | disposition home or self-care (01) ==
LOC: C.LABWYN 14:57
PROVIDERS: ATTEND Internal Medicine Cardiovascular Disease
DX: Z01.89 Encounter for other specified special examinations (principal)

== ENCOUNTER → 2017-10-19 | Outpatient (CLI) | payer BC ==
[2017-10-19 15:06] LABS: INR 2.8 (0.9-1.1)
--- NOTE | 2017-10-20 13:46 | CODING QUERY NO DIAGNOSIS ---
TREATMENT RENDERED WITHOUT A DIAGNOSIS To promote full compliance with coding requirements relating to patient care, physician participation is requested in all cases of livestock nutrition territory manager uncertainty. Please assist us with providing a copy of the original physician order for the following services that were rendered on 10/19/17. PROTHROMBIN TIME PROFILE Please send a copy of the original physician order including a diagnosis and signature for the services rendered above so that we are able to bill the insurance for these services. [facility] you [facility] Information Management Once completed, please kindly fax back to [phone] For questions please call [phone]
== END | disposition home or self-care (01) ==
LOC: C.LABSPEC 14:30
PROVIDERS: ATTEND Internal Medicine Cardiovascular Disease
DX: I48.2 Chronic atrial fibrillation (principal)

== ENCOUNTER → 2017-11-23 | Outpatient (CLI) | payer BC ==
[2017-11-23 13:02] LABS: INR 2.5 (0.9-1.1)
== END | disposition home or self-care (01) ==
LOC: C.LABWYN 10:17
PROVIDERS: ATTEND Internal Medicine Cardiovascular Disease
DX: I48.2 Chronic atrial fibrillation (principal)

== ENCOUNTER → 2017-12-14 | Outpatient (CLI) | payer BC ==
[2017-12-14 12:22] LABS: HEMATOCRIT 32.4 % (42-52); HEMOGLOBIN 10.7 g/dL (14.0-18.0); MEAN CELL VOLUME 95.6 fL (80-100); MEAN CORPUSCULAR HEMOGLOBIN 31.6 pg (25-34); MEAN PLATELET VOLUME 9.9 fL (7.4-10.4); PLATELET COUNT 211 K/uL (130-400); RED CELL DISTRIBUTION WIDTH CV 16.4 % (11.5-14.5); RED CELL DISTRIBUTION WIDTH SD 56.5 fL (36.4-46.3); WHITE BLOOD COUNT 7.23 K/uL (4.8-10.8)
[2017-12-14 13:03] LABS: BLOOD UREA NITROGEN 32 mg/dl (7-18); CALCIUM 8.7 mg/dl (8.5-10.1); CARBON DIOXIDE 25 mmol/L (21-32); CREATININE 1.76 mg/dl (0.60-1.40); GLUCOSE 85 mg/dl (70-99); POTASSIUM 4.8 mmol/L (3.5-5.1); SODIUM 139 mmol/L (136-145)
[2017-12-14 13:06] LABS: CHOLESTEROL 157 mg/dl (0-200); LDL CHOLESTEROL CALCULATED 84 mg/dl
[2017-12-14 13:15] LABS: HEMOGLOBIN A1C 5.7 % (4.5-5.6)
== END | disposition home or self-care (01) ==
LOC: C.LABWYN 10:26
PROVIDERS: ATTEND Nurse Practitioner Adult Health
DX: I10 Essential (primary) hypertension (principal); E11.9 Type 2 diabetes mellitus without complications; E78.5 Hyperlipidemia, unspecified

== ENCOUNTER → 2017-12-21 | Outpatient (CLI) | payer BC ==
[2017-12-21 12:44] LABS: INR 2.2 (0.9-1.1)
== END | disposition home or self-care (01) ==
LOC: C.LABWYN 09:14
PROVIDERS: ATTEND Physician Assistant Medical
DX: I48.2 Chronic atrial fibrillation (principal)

== ENCOUNTER → 2018-01-18 | Outpatient (CLI) | payer BC ==
[2018-01-18 13:29] LABS: INR 2.9 (0.9-1.1)
== END | disposition home or self-care (01) ==
LOC: C.LABWYN 11:20
PROVIDERS: ATTEND Internal Medicine Cardiovascular Disease
DX: I48.2 Chronic atrial fibrillation (principal)

== ENCOUNTER → 2018-02-21 | Outpatient (CLI) | payer BC ==
[2018-02-21 08:27] LABS: INR 1.2 (0.9-1.1)
== END | disposition home or self-care (01) ==
LOC: C.LABWYN 07:42
PROVIDERS: ATTEND Internal Medicine Cardiovascular Disease
DX: I48.2 Chronic atrial fibrillation (principal)

== ENCOUNTER → 2018-02-24 | Outpatient (CLI) | payer BC ==
[2018-02-24 12:27] LABS: BASO % 0.7 %; BASO ABS # 0.06 K/uL (0-0.2); EOS % 5.2 %; EOS ABS # 0.44 K/uL (0-0.5); HEMATOCRIT 29.3 % (42-52); HEMOGLOBIN 9.9 g/dL (14.0-18.0); IG# 0.02 K/uL (0.00-0.02); LYMPH % 16.1 %; LYMPH ABS # 1.37 K/uL (1.2-3.4); MEAN CELL VOLUME 96.4 fL (80-100); MEAN CORPUSCULAR HEMOGLOBIN 32.6 pg (25-34); MEAN CORPUSCULAR HGB CONC 33.8 g/dl (32-36); MEAN PLATELET VOLUME 10.2 fL (7.4-10.4); MONO % 14.4 %; MONO ABS # 1.22 K/uL (0.11-0.59); NEUT % 63.4 %; NEUT ABS # 5.39 K/uL (1.4-6.5); PLATELET COUNT 250 K/uL (130-400); RED CELL DISTRIBUTION WIDTH CV 15.2 % (11.5-14.5); RED CELL DISTRIBUTION WIDTH SD 53.7 fL (36.4-46.3)
[2018-02-24 12:41] LABS: INR 1.3 (0.9-1.1)
== END | disposition home or self-care (01) ==
LOC: C.LABWYN 10:27
PROVIDERS: ATTEND Internal Medicine Cardiovascular Disease
DX: M17.11 Unilateral primary osteoarthritis, right knee (principal); L02.91 Cutaneous abscess, unspecified; I48.2 Chronic atrial fibrillation

== ENCOUNTER → 2018-03-03 | Outpatient (CLI) | payer BC | END | disposition home or self-care (01) | LOC: C.LABWYN 08:44 | PROVIDERS: ATTEND Internal Medicine Cardiovascular Disease | DX: I48.91 Unspecified atrial fibrillation (principal); D64.9 Anemia, unspecified ==

== ENCOUNTER → 2018-03-10 | Outpatient (CLI) | payer BC ==
[2018-03-10 13:33] LABS: INR 2.6 (0.9-1.1)
== END | disposition home or self-care (01) ==
LOC: C.LABWYN 18:03
PROVIDERS: ATTEND Internal Medicine Cardiovascular Disease
DX: I48.2 Chronic atrial fibrillation (principal)

== ENCOUNTER → 2018-04-25 | Outpatient (CLI) | payer BC ==
[2018-04-25 09:04] LABS: INR 3.4 (0.9-1.1)
--- NOTE | 2018-05-27 07:20 | CODING QUERY NO DIAGNOSIS ---
Valid Physician Order Needed A valid physician order must be submitted in order to properly bill for the service(s) provided, including date of service(s), valid diagnosis, and physician signature. If these tests are done on a recurring basis the original physician order must be submitted in order to code and bill for the service(s) provided. Please fax us the original, signed physician order so that we may expedite billing to [phone] DOS 05/17/2018 * PT/NR Thank you Linnea Mcdaniel Health Information Management
== END | disposition home or self-care (01) ==
LOC: C.LABWYN 08:30
PROVIDERS: ATTEND Internal Medicine
DX: I48.2 Chronic atrial fibrillation (principal)

== ENCOUNTER → 2018-05-10 | Outpatient (CLI) | payer BC ==
[2018-05-10 13:29] LABS: INR 2.5 (0.9-1.1)
== END | disposition home or self-care (01) ==
LOC: C.LABWYN 15:33
PROVIDERS: ATTEND Internal Medicine Cardiovascular Disease
DX: I48.2 Chronic atrial fibrillation (principal)

== ENCOUNTER → 2018-05-17 | Outpatient (CLI) | payer BC ==
[~2018-05-17] MED LIST changes: +CEPH500C2 PO; +DOXY100C41 PO; +FERR1TAB13 PO
[2018-05-17 13:20] LABS: INR 2.3 (0.9-1.1)
== END | disposition home or self-care (01) ==
LOC: C.LABWYN 15:14
PROVIDERS: ATTEND Internal Medicine Cardiovascular Disease
DX: Z01.89 Encounter for other specified special examinations (principal)

== ENCOUNTER → 2018-05-31 | Outpatient (CLI) | payer BC ==
[2018-05-31 13:12] LABS: INR 1.5 (0.9-1.1)
== END | disposition home or self-care (01) ==
LOC: C.LABWYN 16:23
PROVIDERS: ATTEND Internal Medicine Cardiovascular Disease
DX: I48.2 Chronic atrial fibrillation (principal)

== ENCOUNTER → 2018-06-07 | Outpatient (CLI) | payer BC | END | disposition home or self-care (01) | LOC: C.LABWYN 16:13 | PROVIDERS: ATTEND Internal Medicine Cardiovascular Disease | DX: I48.2 Chronic atrial fibrillation (principal) ==

== ENCOUNTER → 2018-06-09 | Outpatient (CLI) | payer BC ==
[~2018-06-09] MED LIST changes: -CEPH500C2 PO; +OPTIRAY 320 IV PRN
--- NOTE | 2018-06-09 13:38 | DIAGNOSTIC IMAGING REPORT ---
CT SCAN OF THE LEFT FOOT WITH IV CONTRAST CLINICAL HISTORY: Left foot wound in the first toe COMPARISON STUDY: No priors. TECHNIQUE: Following the IV administration of 91 cc of Optiray 320, CT scan of the left foot is performed from the ankle to the base of the foot. Images are reviewed in the axial, sagittal, and coronal planes. IV contrast was administered without complication. A dose lowering technique was utilized adhering to the principles of ALARA. Note that interpretation is suboptimal without plain film correlate. CT DOSE: 110.65 mGy.cm FINDINGS: The skeletal structures are osteopenic. No acute fracture is identified. There is mild cortical erosion versus subchondral cystic change seen along the superior margin of the first metatarsal head on axial image number 145. No additional foci of bony erosions are suggested and there is no periostitis. 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 Milder arthritic change is noted at the intertarsal and tarsometatarsal joints. There is no evidence of Lisfranc injury. Degenerative spurring is seen along the dorsal aspect of the tarsal bones. A large dorsal calcaneal enthesophyte is observed. There is diffuse subcutaneous soft tissue edema and dermal thickening identified throughout the forefoot, greatest in the first toe. A small cutaneous defect is suggested along the dorsal surface of the first toe at the level of the distal interphalangeal joint as seen on axial image number 150. There is a small pocket of subcutaneous fluid at this site which measures up to 7 mm. An additional 1.7 cm crescentic fluid collection is identified along the dorsal aspect of the first toe seen on image number 113 at the level of the base of the first metatarsal. Both collections are concerning for small abscesses. Additional foci of phlegmonous change are seen along the dorsal aspect of the first toe. Milder soft tissue edema is seen throughout the mid and hindfoot. No additional organized fluid collection is identified. There is generalized atrophy of the regional musculature as well as atherosclerotic calcification of the regional arteries. The Achilles tendon is intact as visualized. There is no evidence of osteochondral defect in the talar dome. IMPRESSION: 1. There is evidence of diffuse cellulitis throughout the forefoot, greatest involving the first toe. 2. There are 2 small organized fluid collections identified within the dorsal soft tissues of the first toe at the level of the distal interphalangeal joint and the base of the first metatarsal. These are highly concerning for abscess. 3. Additional foci of phlegmonous change are identified along the dorsal aspect of the first toe. 4. There is a mild bony erosion seen along the dorsal aspect of the first metatarsal head concerning for osteomyelitis. 5. No additional foci of osseous abnormality are identified. 6. Osteopenia and degenerative change as above. Dictated: 06/09/2018 11:57 AM Transcribed: 06/09/2018 1:38 PM [email or web address] Electronically signed by: Fletcher Shirley M.D. 06/09/2018 1:58 PM Dictated Date/Time: 06/09/2018 11:57 AM
== END | disposition home or self-care (01) ==
LOC: C.CTS 11:14
PROVIDERS: ATTEND Physician Assistant
DX: L97.529 Non-pressure chronic ulcer of other part of left foot with unspecified severity (principal); R93.7 Abnormal findings on diagnostic imaging of other parts of musculoskeletal system; M85.872 Other specified disorders of bone density and structure, left ankle and foot